=== PATIENT | male | born 1995 | race Native Hawaiian/Other Pacific Islander ===

== ENCOUNTER 2022-11-30 08:38 | Emergency (ER) | payer BC ==
[~2022-11-30] VITALS: Ht 190.5 cm; Wt 104.3 kg
[2022-11-30 08:44] VITALS: BP 151/97; TEMP 99
== END 2022-11-30 09:41 | disposition home or self-care (01) ==
LOC: ED 08:38
DX: L03.113 Cellulitis of right upper limb (principal)
CPT/HCPCS: 90471; 90715; 96374; 99283; 99284; J0696